=== PATIENT | male | born 1955 | race American Indian/Alaskan Native ===

== ENCOUNTER 2020-05-08 13:55 | Emergency (ER) | payer SELFPAY ==
[2020-05-08 14:09] VITALS: BP 169/68
--- NOTE | 2020-05-08 15:30 | XRay Report ---
RIGHT HIP, 2 VIEWS INDICATION / CLINICAL INFORMATION: Right hip pain. COMPARISON: None available. FINDINGS: There is severe degenerative change involving the right hip. There is near complete loss of joint spa ce superiorly with subchondral sclerosis present. No fracture or dislocation. Mild degenerative puga es are present in the left hip. IMPRESSION: Severe degenerative change involving the right hip. Signer Name: Kim Fowler MD Signed: 05/08/2020 3:26 PM Workstation Name: [id number]
[2020-05-08 17:34] LABS: Bilirubin,Urine NEG (Negative); Blood,Urine NEG (Negative); Color,Urine Yellow (Yellow); Mucus,Urine FEW /HPF; Protein,Urine <15 mg/dL mg/dL (Negative); WBC,Urine < 1.0 /HPF (0.0-6.0)
[2020-05-08] MEDS ORDERED: HYDROcodone/ACETAMINOPHEN 5-325 MG TAB PO ONE (18:26)
--- NOTE | 2020-05-08 18:30 | Emergency Department Report ---
ED Lower Extremity HPI - General Chief Complaint: Extremity Injury, Lower Stated Complaint: RT LEG PAIN Source: patient Mode of arrival: Ambulatory Limitations: No Limitations - History of Present Illness Initial Comments: Patient is a 65-year-old -Martiniquais male who presents for right hip pain and aching worsening for the past 3 days. Pain radiates to right hip lower cinthya k, pain is rated at 5/10 exacerbated by movement bending twisting. Patient denies numbness or tingling. There is been no loss or decrease in bowel or bladder function. Patient remains amatory to baseline per patient. He denies fall, injury ,or trauma. There is been no fever or chills. Patient does endorse history of arthralgia. MD Complaint: hip injury Onset/Timin -: days(s) - Related Data Previous Rx's Medication Instructions Recorded Last Taken Type Acetaminophen/Codeine [Tylenol 1 tab PO Q6H PRN #12 tab 05/08/20 Unknown Rx /Codeine # 3 tab] Capsaicin 0.075% [Zostrix Hp 1 applicatio TP TID #1 tube 05/08/20 Unknown Rx 0.075%] Allergies Allergy/AdvReac Type Severity Reaction Status Date / Time banana Allergy Hives Verified 05/08/20 14:08 ED Review of Systems ROS: Stated complaint: RT LEG PAIN Other details as noted in HPI Constitutional: denies: chills, fever Eyes: denies: eye pain, eye discharge, vision change ENT: denies: ear pain, throat pain Respiratory: denies: cough, shortness of breath, wheezing Cardiovascular: denies: chest pain, palpitations Endocrine: no symptoms reported Gastrointestinal: denies: abdominal pain, nausea, vomiting, diarrhea Genitourinary: denies: urgency, dysuria Musculoskeletal: arthralgia, myalgia. denies: back pain, joint swelling Skin: denies: rash, lesions Neurological: denies: headache, weakness, paresthesias Psychiatric: denies: anxiety, depression Hematological/Lymphatic: denies: easy bleeding, easy bruising ED Past Medical Hx - Past Medical History Previous Medical History?: Yes Additional medical history: Fall with right leg inijury - Surgical History Past Surgical History?: No - Social History Smoking Status: Never Smoker Substance Use Type: Alcohol - Medications Home Medications: Home Medications Medication Instructions Recorded Confirmed Last Taken Type Acetaminophen/Codeine [Tylenol 1 tab PO Q6H PRN #12 tab 05/08/20 Unknown Rx /Codeine # 3 tab] Capsaicin 0.075% [Zostrix Hp 1 applicatio TP TID #1 tube 05/08/20 Unknown Rx 0.075%] ED Physical Exam - General Limitations: No Limitations General appearance: alert, in no apparent distress - Head Head exam: Present: atraumatic, normocephalic - Eye Eye exam: Present: normal appearance - ENT ENT exam: Present: mucous membranes moist - Neck Neck exam: Present: normal inspection, full ROM. Absent: tenderness - Respiratory Respiratory exam: Present: normal lung sounds bilaterally. Absent: respiratory distress, wheezes, stridor, chest wall tenderness - Cardiovascular Cardiovascular Exam: Present: regular rate, normal rhythm, normal heart sounds. Absent: systolic murmur, diastolic murmur, rubs, gallop - GI/Abdominal GI/Abdominal exam: Present: soft, normal bowel sounds. Absent: distended, tenderness, guarding, rebound, rigid, bruit, hernia - Rectal Rectal exam: Present: deferred - Extremities Exam Extremities exam: Present: normal inspection, full ROM, tenderness (right lateral hip ), normal capillary refill. Absent: pedal edema, joint swelling, calf tenderness - Expanded Lower Extremity Exam Right Hip exam: Present: full ROM, tenderness. Absent: swelling, abrasion, laceration, deformity, crepidus, dislocation, erythema, external rotation, internal rotation, shortening, pelvic stability Upper Leg exam: Present: normal inspection, full ROM. Absent: tenderness Knee exam: Present: full ROM, tenderness. Absent: swelling Lower Leg exam: Present: full ROM, tenderness. Absent: swelling Foot/Toe exam: Present: normal inspection, full ROM. Absent: tenderness Neuro vascular tendon exam: Absent: pulse deficit, sensory deficit, tendon deficit Gait: Positive: observed and limited by pain - Back Exam Back exam: Present: normal inspection, full ROM. Absent: tenderness, CVA tenderness (R), CVA tenderness (L), muscle spasm, paraspinal tenderness, vertebral tenderness - Neurological Exam Neurological exam: Present: alert, CN II-XII intact, normal gait, reflexes normal. Absent: motor sensory deficit - Expanded Neurological Exam Expanded Motor strength exam: RLE: 5, LLE: 5 Best Eye Response ([place]): (4) open spontaneously Best Motor Response (Amy): (6) obeys commands Best Verbal Response (Amy): (5) oriented [place] Total: 15 - Psychiatric Psychiatric exam: Present: normal affect, normal mood - Skin Skin exam: Present: warm, dry, intact, normal color. Absent: rash ED Course Vital Signs 05/08/20 14:06 Temperature 98.1 F Pulse Rate 76 Respiratory 18 Rate Blood Pressure 169/68 O2 Sat by Pulse 95 Oximetry ED Lower Extremity MDM - Radiology Data Radiology results: report reviewed, image reviewed Hip x-ray severe arthralgia no acute fracture or soft tissue abnormality - Medical Decision Making X-ray demonstrates arthralgia, no soft tissue abnormality, UA normal, plan treat for arthralgia. NSAIDs analgesic balm follow-up with orthopedics follow-up with primary care doctor in 2 to 3 days patient verbalizes agreement and understanding with discharge plan. Pain is improved with hydrocodone given in ED. Patient DC'd home in stable condition at this time. Critical care attestation.: If time is entered above; I have spent that time in minutes in the direct care of this critically ill patient, excluding procedure time. ED Disposition Clinical Impression: Arthritis of right hip Disposition: DC-01 TO HOME OR SELFCARE Is pt being admited?: No Does the pt Need Aspirin: No Condition: Stable Instructions: Osteoarthritis (ED), Arthralgia (ED) Prescriptions: Acetaminophen/Codeine [Tylenol /Codeine # 3 tab] 1 tab PO Q6H PRN #12 tab PRN Reason: pain Capsaicin 0.075% [Zostrix Hp 0.075%] 1 applicatio TP TID #1 tube Referrals: AYESHA VALENTE MD [Staff Physician] - 3-5 Days LUCHO JOHNSON MD [Staff Physician] - 3-5 Days Forms: Work/School Release Form(ED) Time of Disposition: 18:35
== END 2020-05-08 18:50 | disposition home or self-care (01) ==
LOC: ED 13:55
DX: M16.11 Unilateral primary osteoarthritis, right hip (principal)
CPT/HCPCS: 81001; 99284